=== PATIENT | female | born 1940 | race Two or more races ===

== ENCOUNTER 2025-02-10 10:01 | Inpatient (IN) | payer OTHER ==
[~2025-02-10] VITALS: Ht 165.1 cm; Wt 63.6 kg
--- NOTE | 2025-02-10 10:25 | ED.PDOC ---
History of present illness HPI Comments 84-year-old female presents here from facility boarding facility. There was some concern that the hospice agency was audited and due to blood sugars was dropped. Family not at bedside to give exact information. EMS his family number. Patient reports bilateral hand pinching pain only. No other complaints . Blood sugar was found to be 439 and field by EMS. Vital signs stable by EMS. Patient is at her normal mental baseline which has been slowly declining Chief Complaint: Hyperglycemia Time Seen by MD: 10:08 Allergies: Coded Allergies: Penicillins (Verified Allergy, Unknown, 02/10/25) Home Meds Reported Medications Lisinopril (Lisinopril) 5 Mg Tab, 1 TAB PO DAILY 02/10/25 Levothyroxine Sodium (Levothyroxine Sodium) 50 Mcg Tab, 1 TAB PO DAILY 02/10/25 Mode of Arrival: EMS Past Medical History PAST MEDICAL HISTORY: Dementia Surgical History: Pt Confused CASEWORKER History: Pt Confused Family History Family History (Other): Unable to obtain Social History Smoker: Pt Confused Alcohol: Pt Confused Drugs: Pt Confused Unable to Obtain due to: Dementia Physical Exam General Appearance: No Apparent Distress, Normal, Thin, Other (Lying in gurney. Answers few questions softly only.) HEENT: Normal ENT Inspection, Pharynx Normal, TMs Normal Neck: Full Range of Motion, Non-Tender, Normal, Normal Inspection Respiratory: Chest Non-Tender, Lungs Clear, No Accessory Muscle Use, No Respiratory Distress, Normal Breath Sounds Cardiovascular: No Edema, No JVD, No Murmur, No Gallop, Normal Peripheral Pulses, Regular Rate/Rhythm Breast Exam: Deferred Gastrointestinal: No Organomegaly, Non Tender, No Pulsatile Mass, Normal Bowel Sounds, Soft Genitalia: Deferred Pelvic: Deferred Rectal: Deferred Extremities: No calf tenderness, Normal capillary refill, Normal inspection, Normal range of motion, Non-tender, No pedal edema Musculoskeletal : Apperance: Normal Neurologic: Alert, No Motor Deficits, Normal Affect, Normal Mood, No Sensory Deficits, Other (Patient oriented to person only. Believes we are in [place]. When asked about the month and year begins to speak about her ph ysician.) Cerebellar Function: Normal Reflexes: Normal Skin: Dry, Normal Color, Warm Lymphatic: No Adenopathy Was a procedure done? Was a procedure done?: No EKG EKG : Comments Normal sinus rhythm rate of [address] changes Differential Diagnosis (DM) Differential Diagnosis: Dehydration, DKA, Electrolyte Abnormality, Hyperglycemia, Hyperosmolar State, UTI X-Ray, Labs, Meds, VS Vital Signs Date Time Temp Pulse Resp B/P (MAP) Pulse Ox O2 Delivery O2 Flow Rate FiO2 02/10/25 14:48 92 Nasal Cannula* 3 32 02/10/25 14:33 75 16 93 Nasal Cannula* 3 32 02/10/25 14:00 60 16 117/46 (69) 94 02/10/25 12:00 77 16 136/53 (80) 94 02/10/25 11:00 98.2 69 16 128/46 (73) 94 98.2 02/10/25 10:16 98.4 70 12 154/52 (86) 97 98.4 02/10/25 10:13 63 Lab Test 02/10/25 11:35 02/10/25 11:00 02/10/25 10:26 Range/Units Troponin I High Sensitivity 4 6 </=34 ng/L POC Glucose 422 *H 70-106 mg/dl White Blood Count 6.6 4.4-10.8 10^3/uL Red Blood Count 4.23 4.0-5.20 10^6/uL Hemoglobin 13.2 12.2-16.2 g/dL Hematocrit 38.5 36.0-46.0 % Mean Corpuscular Volume 90.9 80.0-100.0 fL Mean Corpuscular Hemoglobin 31.2 28.0-32.0 pg Mean Corpuscular Hemoglobin Concent 34.3 32.0-36.0 g/dL Red Cell Distribution Width 14.2 11.8-14.3 % Platelet Count 255 140-450 10^3/uL Mean Platelet Volume 6.6 L 6.9-10.8 fL Neutrophils (%) (Auto) 66.3 37.0-80.0 % Lymphocytes (%) (Auto) 24.9 10.0-50.0 % Monocytes (%) (Auto) 5.9 0.0-12.0 % Eosinophils (%) (Auto) 2.3 0.0-7.0 % Basophils (%) (Auto) 0.6 0.0-2.0 % Neutrophils # (Auto) 4.4 1.6-8.6 10 ^3/uL Lymphocytes # (Auto) 1.7 0.4-5.4 10 ^3/uL Monocytes # (Auto) 0.4 0-1.3 10 ^3/uL Eosinophils # (Auto) 0.2 0-0.8 10 ^3/uL Basophils # (Auto) 0 0-0.2 10 ^3/uL Nucleated Red Blood Cells 0.0 % Sodium Level 138 136-145 mmol/L Potassium Level 4.0 3.5-5.1 mmol/L Chloride Level 102 98-107 mmol/L Carbon Dioxide Level 28 20-31 mmol/L Anion Gap 8 5-15 Blood Urea Nitrogen 11 9-23 mg/dL Creatinine 0.60 0.550-1.02 mg/dL Glomerular Filtration Rate Calc 88 >90 mL/min BUN/Creatinine Ratio 18.3 10.0-20.0 Serum Glucose 402 *H 74-106 mg/dL Hemoglobin A1c 7.8 H <5.7 % A1C Calcium Level 8.8 8.7-10.4 mg/dL Magnesium Level 1.4 L 1.6-2.6 mg/dL Total Bilirubin 0.4 0.2-1.0 mg/dL Aspartate Amino Transferase (AST) 13 13-40 U/L Alanine Aminotransferase (ALT) 11 7-40 U/L Alkaline Phosphatase 77 46-116 U/L Total Protein 5.7 5.7-8.2 g/dL Albumin 3.6 3.2-4.8 g/dL Current Medications Medications (Trade) Dose Ordered Sig/Becky Route Start Time Stop Time Status Last Admin Diphenhydramine HCl (Benadryl Injection) 25 mg ONCE ONCE IV 02/10/25 11:15 02/10/25 11:16 DC 02/10/25 11:46 Diagnostic Test (Pha) (Accu-Chek Comfort Curve T) 1 strip NOW ONCE 02/10/25 12:15 02/10/25 12:16 DC 02/10/25 12:30 Insulin Human Regular (InsuLIN R) NOW ONCE SC 02/10/25 12:15 02/10/25 12:16 DC 02/10/25 12:27 84-year-old female presents here from [facility]. [facility] was on it today and did not pass out it and therefore the patient has all had to be transferred out. At that time EMS found her to be hyperglycemic. In the 400s. At this time blood work has been done which is largely unremarkable except for blood glucose of 402. She does not appear to be in DKA. Does have mildly low magnesium at 1.4. At this time patient will require clinical social work therapist consult and placement to another facility. Patient was on hospice and will need hospitalist re-evaluate. Patient has been started on sliding scale in the ER. And has been given IV fluids. Hospitalist team contacted for admission. Time of 1ST Reevaluation: 12:50 Reevaluation 1ST: Unchanged Patient Education/Counseling: Diagnosis, Treatment Family Education/Counseling: Diagnosis, Treatment SEPSIS Sepsis Screen Physician Orders Urinalysis (02/10/25 10:17) Electrocardigram (02/10/25 10:17) Electrocardigram (02/10/25 11:17) * Protocol Manager Consult (02/10/25 ) * Wound Consult (02/10/25 ) Speech Evaluation (02/10/25 14:41) Vital Signs Date Time Temp Pulse Resp B/P (MAP) Pulse Ox O2 Delivery O2 Flow Rate FiO2 02/10/25 14:48 92 Nasal Cannula* 3 32 02/10/25 14:33 75 16 93 Nasal Cannula* 3 32 02/10/25 14:00 60 16 117/46 (69) 94 02/10/25 12:00 77 16 136/53 (80) 94 02/10/25 11:00 98.2 69 16 128/46 (73) 94 98.2 02/10/25 10:16 98.4 70 12 154/52 (86) 97 98.4 02/10/25 10:13 63 Laboratory Tests Test 02/10/25 10:26 White Blood Count 6.6 10^3/uL (4.4-10.8) Medications Medications Dose Ordered Sig/Becky Route Start Time Stop Time Status Last Admin Dose Admin Diagnostic Test (Pha) 1 strip NOW ONCE 02/10/25 12:15 02/10/25 12:16 DC 02/10/25 12:30 Diphenhydramine HCl 25 mg ONCE ONCE IV 02/10/25 11:15 02/10/25 11:16 DC 02/10/25 11:46 Insulin Human Regular NOW ONCE SC 02/10/25 12:15 02/10/25 12:16 DC 7/12/25 12:27 Departure 1 Departure Time of Disposition: 12:50 Impression: Primary Impression: Hyperglycemia Disposition: 09 ADMITTED INPATIENT Condition: Fair Critical Care Note Critical Care Time?: No Stability Stability form required: No Heart Score Heart Score: Heart Score Response (Comments) Value History N/A 0 EKG N/A 0 Age N/A 0 Risk Factors N/A 0 Troponin N/A 0 Total 0 SHERON AYALA MD Feb 10, 2025 10:25
[2025-02-10 10:37] LABS: Hematocrit 38.5 % (36.0-46.0); Hemoglobin 13.2 g/dL (12.2-16.2); Mean Corpuscular Hemoglobin 31.2 pg (28.0-32.0); Mean Corpuscular Volume 90.9 fL (80.0-100.0); Nucleated Red Blood Cells % 0.0 %
[2025-02-10 10:53] LABS: Alanine Aminotransferase 11 U/L (7-40); Albumin 3.6 g/dL (3.2-4.8); Alkaline Phosphatase 77 U/L (46-116); Anion Gap 8 (5-15); BUN/Creatinine Ratio 18.3 (10.0-20.0); Blood Urea Nitrogen 11 mg/dL (9-23); Calcium 8.8 mg/dL (8.7-10.4); Carbon Dioxide 28 mmol/L (20-31); Chloride 102 mmol/L (98-107); Potassium 4.0 mmol/L (3.5-5.1); Sodium 138 mmol/L (136-145)
[2025-02-10 10:54] LABS: Bilirubin, Total 0.4 mg/dL (0.2-1.0)
[2025-02-10 10:57] LABS: Glucose 402 mg/dL (74-106); Magnesium 1.4 mg/dL (1.6-2.6); Total Protein 5.7 g/dL (5.7-8.2)
[2025-02-10] MEDS: diphenhdrAMINE HCL 50 MG/1 ML VL IV ONE (11:46)
[2025-02-10] MEDS ORDERED: DEXTROSE (50%) 50ML SYRG IV PRN ×2 (12:15→15:45)
[2025-02-10] MEDS: InsuLIN REG 1unit/0.01ml Soln (100units/ml) SC ONE (12:27)
[2025-02-10] MEDS: ACCU-CHEK COMFORT CURVE STRIP VI ONE (12:30)
[2025-02-10 14:33] VITALS: PULSE 75; RESP 16; O2SAT 93
[2025-02-10] MEDS ORDERED: LEVO50TA7 PO (15:38)
[2025-02-10] MEDS ORDERED: LISI-275 PO (15:38)
[2025-02-10] MEDS ORDERED: diphenhdrAMINE-ZINC ACETATE 1 APPLIC APPL TOP PRN (15:45)
[2025-02-10] MEDS ORDERED: ONDANSETRON HCL 4 MG/2 ML VIAL IV PRN (15:45)
--- NOTE | 2025-02-10 15:56 | DVHHP2 ---
History of Present Illness Reason for Visit: Hyperglycemia History of Present Illness Darshana Cano is an 84-year-old female with past medical history of hypothyroidism, hypertension, diabetes, dementia, and right hip fracture with a screw placed at [facility] who presents to the ED with elevated blood sugar from a board and care called [facility]. Per patient's son Cory and [id number]-[id number] Trixie at the bedside they report that the current hospice that she was at was audited and they were forced to take the patient out by 2 days from the facility. They stated that she has been in the board and care since November of 2023. Patient's son Cory reports that in August of this year while he was taking his mother to the neurology office on August 21, 2024 he had to lift her up and hold her up from the wheelchair and the patient developed rib fractures from him lifting her up. He reports that he called EMS for help. Patient's son reports that she is bed-bound. He also reports that she does eat with someone to feed her and the [id number] states that she drinks ensures with a decrease in her appetite in the last several days. Patient's family also states that she does not use oxygen at the facility. Family at bedside also states that while she was there at the board and care they kept the facility cold and blankets on the patient. They stated that they noted skin chafing/peeling along with itchiness. RN at the bedside also stated the she has a wound on her sacrum that was present on arrival. Patient displays no complaints of chest pain. 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 Dad with diabetes and CHF.) Smoke: No ALCOHOL: none Drugs: None Lives: Other Domestic Violence: Neg Review of Systems Other Elevated blood sugar Allergies: Coded Allergies: Penicillins (Verified Allergy, Unknown, 02/10/25) Medications Current Medications Medications Dose Ordered Sig/Becky Route Start Time Stop Time Status Last Admin Dose Admin Diagnostic Test (Pha) 1 strip IQ4HR 02/10/25 16:00 Insulin Human Regular IQ4HR SC 02/10/25 16:00 Dextrose 50 ml UD PRN IV 02/10/25 12:15 Ondansetron HCl 4 mg Q4HP PRN IV 02/10/25 15:45 UNV Enoxaparin Sodium 40 mg DAILY SC 02/11/25 10:00 UNV Acetaminophen 650 mg Q6HP PRN PO 02/10/25 15:45 UNV Diagnostic Test (Pha) 1 strip ACHS 02/10/25 17:00 UNV Insulin Human Regular ACHS SC 02/10/25 17:00 UNV Dextrose 50 ml UD PRN IV 02/10/25 15:45 UNV Zinc Acetate/ Diphenhydramine 1 applic Q6HP PRN TOP 02/10/25 15:45 UNV Exam Vital Signs Vital Signs Date Time Temp Pulse Resp B/P (MAP) Pulse Ox O2 Delivery O2 Flow Rate FiO2 02/10/25 14:48 92 Nasal Cannula* 3 32 02/10/25 14:33 75 16 02/10/25 14:00 117/46 (69) 02/10/25 11:00 98.2 98.2 General Appearance: No acute distress HEENT: Atraumatic Respiratory: Clear to auscultation, Normal air movement Cardiovascular: Normal S1, Normal S2 Abdominal: Normal bowel sounds, Soft Extremities: Normal pulses Labs/Xrays Labs Test 02/10/25 11:35 02/10/25 11:00 02/10/25 10:26 Range/Units Troponin I High Sensitivity 4 </=34 ng/L POC Glucose 422 *H 70-106 mg/dl White Blood Count 6.6 4.4-10.8 10^3/uL Red Blood Count 4.23 4.0-5.20 10^6/uL Hemoglobin 13.2 12.2-16.2 g/dL Hematocrit 38.5 36.0-46.0 % Mean Corpuscular Volume 90.9 80.0-100.0 fL Mean Corpuscular Hemoglobin 31.2 28.0-32.0 pg Mean Corpuscular Hemoglobin Concent 34.3 32.0-36.0 g/dL Red Cell Distribution Width 14.2 11.8-14.3 % Platelet Count 255 140-450 10^3/uL Mean Platelet Volume 6.6 L 6.9-10.8 fL Neutrophils (%) (Auto) 66.3 37.0-80.0 % Lymphocytes (%) (Auto) 24.9 10.0-50.0 % Monocytes (%) (Auto) 5.9 0.0-12.0 % Eosinophils (%) (Auto) 2.3 0.0-7.0 % Basophils (%) (Auto) 0.6 0.0-2.0 % Neutrophils # (Auto) 4.4 1.6-8.6 10 ^3/uL Lymphocytes # (Auto) 1.7 0.4-5.4 10 ^3/uL Monocytes # (Auto) 0.4 0-1.3 10 ^3/uL Eosinophils # (Auto) 0.2 0-0.8 10 ^3/uL Basophils # (Auto) 0 0-0.2 10 ^3/uL Nucleated Red Blood Cells 0.0 % Sodium Level 138 136-145 mmol/L Potassium Level 4.0 3.5-5.1 mmol/L Chloride Level 102 98-107 mmol/L Carbon Dioxide Level 28 20-31 mmol/L Anion Gap 8 5-15 Blood Urea Nitrogen 11 9-23 mg/dL Creatinine 0.60 0.550-1.02 mg/dL Glomerular Filtration Rate Calc 88 >90 mL/min BUN/Creatinine Ratio 18.3 10.0-20.0 Serum Glucose 402 *H 74-106 mg/dL Calcium Level 8.8 8.7-10.4 mg/dL Magnesium Level 1.4 L 1.6-2.6 mg/dL Total Bilirubin 0.4 0.2-1.0 mg/dL Aspartate Amino Transferase (AST) 13 13-40 U/L Alanine Aminotransferase (ALT) 11 7-40 U/L Alkaline Phosphatase 77 46-116 U/L Total Protein 5.7 5.7-8.2 g/dL Albumin 3.6 3.2-4.8 g/dL SEPSIS Sepsis Screen Date sepsis recognized/suspect: Feb 10, 2025 Time Sepsis recognized/suspect: 1441 Recent Procedure: No On Antibiotic Therapy: No Respiratory Rate >20: No Heart Rate >90: No Temp<36 C (96.8 F) or >38.3 C: No SBP <90 or MAP <65 mmHG: No New Acute Mental Status Change: No Is the patient on CPAP, BIPAP,: No Physician Orders Urinalysis (02/10/25 10:17) Electrocardigram (02/10/25 10:17) Electrocardigram (02/10/25 11:17) Glucose Blood (Accu-Chek Comfort Curve T (02/10/25 16:00) Insulin R (Human) (Insulin R) (02/10/25 16:00) Dextrose 50% Syringe (02/10/25 12:15) * Civil Litigation Attorney Consult (02/10/25 ) * Wound Consult (02/10/25 ) Speech Evaluation (02/10/25 14:41) Admit (02/10/25 15:34) Allergies (02/10/25 15:34) Code Status (02/10/25 15:34) Oxygen Per Hour (02/10/25 15:34) Ondansetron Hcl (Zofran) (02/10/25 15:45) Enoxaparin Sodium (Lovenox) (02/11/25 10:00) Complete Blood Count (02/11/25 04:00) Comprehensive Metabolic Panel (02/11/25 04:00) Cardiac Diet-2gna,Lofat,Lochol (02/10/25 Dinner) * Swallow Request (02/10/25 15:34) Acetaminophen Tablet (Tylenol Tablet) (02/10/25 15:45) Hemoglobin A1c (02/10/25 15:34) Glucose Blood (Accu-Chek Comfort Curve T (02/10/25 17:00) Insulin R (Human) (Insulin R) (02/10/25 17:00) Dextrose 50% Syringe (02/10/25 15:45) Diphenhdramine-Zinc Cream (Benadryl Crea (02/10/25 15:45) * Dietary Consult (02/10/25 15:38) Levothyroxine Tablet (Synthroid Tablet) (02/11/25 10:00) Lisinopril Tablet (Zestril Tablet) (02/11/25 10:00) Vital Signs Date Time Temp Pulse Resp B/P (MAP) Pulse Ox O2 Delivery O2 Flow Rate FiO2 02/10/25 14:48 92 Nasal Cannula* 3 32 02/10/25 14:33 75 16 93 Nasal Cannula* 3 32 02/10/25 14:00 60 16 117/46 (69) 94 02/10/25 12:00 77 16 136/53 (80) 94 02/10/25 11:00 98.2 69 16 128/46 (73) 94 98.2 02/10/25 10:16 98.4 70 12 154/52 (86) 97 98.4 02/10/25 10:13 63 Laboratory Tests Test 02/10/25 10:26 White Blood Count 6.6 10^3/uL (4.4-10.8) Medications Medications Dose Ordered Sig/Becky Route Start Time Stop Time Status Last Admin Dose Admin Diagnostic Test (Pha) 1 strip NOW ONCE 02/10/25 12:15 02/10/25 12:16 DC 02/10/25 12:30 1 STRIP Diphenhydramine HCl 25 mg ONCE ONCE IV 02/10/25 11:15 02/10/25 11:16 DC 02/10/25 11:46 25 MG Insulin Human Regular NOW ONCE SC 02/10/25 12:15 02/10/25 12:16 DC 02/10/25 12:27 15 UNITS Assessment/Plan Assessment/Plan Assessment Acute hypoxic respiratory failure Hyperglycemia History of dementia History of hypothyroidism History of hypertension History of diabetes History of right hip fracture with screw in [facility] at [facility] Bed-bound Resident of [facility] and 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 Dietary consult UA Urine culture Benadryl cream Wound consult Wound culture with Gram stain Diet Home medications reconciled DVT prophylaxis-Lovenox PUD prophylaxis-not indicated no history of GERD or GI bleed Discussed plan of care with patient's son, [id number], and nurse Social work-hospice resumption [id number] Preventive counseling healthy eating habits, physical activity, and regular checkups Plan discussed with: Son, Other ([id number]) My Orders Orders - MARGE CONTE STATISTICAL TECHNICIAN Procedure Category Date Status Time Admit ADMIT 02/10/25 Transmitted 15:34 Allergies NATA 02/10/25 In Process 15:34 Code Status CODE 02/10/25 Transmitted 15:34 Oxygen Per Hour RT 02/10/25 Transmitted 15:34 Ondansetron Hcl PHA 02/10/25 Logged (Zofran) 15:45 Enoxaparin Sodium PHA 02/11/25 Logged (Lovenox) 10:00 Complete Blood Count LAB 02/11/25 Verified 04:00 Comprehensive LAB 02/11/25 Verified Metabolic Panel 04:00 Cardiac DIET 02/10/25 Transmitted Diet-2gna,Lofat,Lochol Dinner * Swallow Request ST 02/10/25 Transmitted 15:34 Acetaminophen Tablet PHA 02/10/25 Logged (Tylenol Tablet) 15:45 Hemoglobin A1c LAB 02/10/25 Transmitted 15:34 Glucose Blood PHA 02/10/25 Logged (Accu-Chek Comfort 17:00 Insulin R (Human) PHA 02/10/25 Logged (Insulin R) 17:00 Dextrose 50% Syringe PHA 02/10/25 Logged 15:45 Diphenhdramine-Zinc PHA 02/10/25 Logged Cream (Benadryl Crea 15:45 * Dietary Consult CONS 02/10/25 Transmitted 15:38 Levothyroxine Tablet PHA 02/11/25 Verified (Synthroid Tablet) 10:00 Lisinopril Tablet PHA 02/11/25 Verified (Zestril Tablet) 10:00 Date of Service: Feb 10, 2025 Billing Provider: MARGE CONTE Common Visit Codes: [id number] INP/OBS CARE (HIGH) Secondary Visit Codes: [id number] COUNSELING IND MARGE CONTE Feb 10, 2025 15:56
[2025-02-10] MEDS: InsuLIN REG 1unit/0.01ml Soln (100units/ml) SC SCH ×2 (16:32→16:40)
[2025-02-10] MEDS: ACCU-CHEK COMFORT CURVE STRIP VI SCH ×2 (16:32→16:40)
[2025-02-10] MEDS: Ensure HIGH Protein Vanilla 8oz Bottle PO SCH (19:23)
[2025-02-10 19:30] VITALS: PULSE 70; RESP 14; O2SAT 94
[2025-02-10 21:17] LABS: Urine Protein, UAD 1+ (Negative)
[2025-02-11 04:16] LABS: Hematocrit 38.1 % (36.0-46.0); Hemoglobin 13.2 g/dL (12.2-16.2); Mean Corpuscular Hemoglobin 31.9 pg (28.0-32.0); Mean Corpuscular Volume 92.1 fL (80.0-100.0); Nucleated Red Blood Cells % 0.1 %
[2025-02-11 04:48] LABS: Alanine Aminotransferase 11 U/L (7-40); Albumin 3.6 g/dL (3.2-4.8); Alkaline Phosphatase 71 U/L (46-116); Anion Gap 8 (5-15); BUN/Creatinine Ratio 23.2 (10.0-20.0); Blood Urea Nitrogen 13 mg/dL (9-23); Calcium 10.0 mg/dL (8.7-10.4); Carbon Dioxide 29 mmol/L (20-31); Chloride 103 mmol/L (98-107); Potassium 4.1 mmol/L (3.5-5.1); Sodium 140 mmol/L (136-145)
[2025-02-11 04:49] LABS: Bilirubin, Total 0.6 mg/dL (0.2-1.0); Glucose 262 mg/dL (74-106); Total Protein 5.6 g/dL (5.7-8.2)
[2025-02-11] MEDS: LEVOTHYROXINE SODIUM 50 MCG TAB PO SCH (07:04)
[2025-02-11] MEDS: ENOXAPARIN SOD 40 MG/0.4 ML SYRINGE SC SCH (07:57)
[2025-02-11] MEDS: LISINOPRIL 5 MG TAB PO SCH (07:58)
[2025-02-11] MEDS: SODIUM CHLORIDE 0.9% 1,000 ML IV SCH (08:31)
[2025-02-11 10:42] VITALS: PULSE 70; RESP 19; O2SAT 94
[2025-02-11] MEDS: SILVER SULFADIAZINE 1 % TOPICAL CREAM 50GM TOP ONE (10:56)
[2025-02-11] MEDS: ACETAMINOPHEN 325 MG TAB PO PRN (13:41)
[2025-02-11 17:38] VITALS: BP 135/57; PULSE 60; RESP 12; TEMP 98.6; O2SAT 94
[2025-02-11 18:20] VITALS: BP 171/67; PULSE 68; RESP 16; TEMP 97.5; O2SAT 97
[2025-02-11 18:37] VITALS: O2SAT 96
[2025-02-11 21:00] VITALS: BP 157/50; PULSE 65; RESP 16; TEMP 98.2; O2SAT 95
[2025-02-12 01:00] VITALS: BP 154/50; PULSE 60; RESP 16; TEMP 97.5; O2SAT 98
[2025-02-12 08:45] VITALS: BP 137/71; PULSE 62; RESP 17; TEMP 97.8; O2SAT 98
[2025-02-12] MEDS ORDERED: METF-370 PO (09:37)
[2025-02-12] MEDS ORDERED: PRAM0.752 PO (09:37)
[2025-02-12] MEDS ORDERED: MEMA1TAB5 PO (09:37)
--- NOTE | 2025-02-12 12:37 | DVH ---
AP portable chest CLINICAL INDICATION: REsp failure FINDINGS: Poor inspiratory effort. Atelectasis in the lung bases. Heart size is borderline in the a terry is tortuous. IMPRESSION: 1. Normal expiratory chest exam
--- NOTE | 2025-02-12 12:53 | ECG ---
[facility] Test Date: 2025-02-10 Test Time: 10:13:59 Pat Name: RADHA MEJIA Department: ED Room: 0250 B Gender: F Mammography Tech: daryl : 1940 Requested By: SHERON AYALA Order Number: [id number] Reading MD: Paulie Perez Measurements Intervals [place] Rate: 63 P: 49 [place]: 121 QRS: -10 QRSD: 83 T: 33 QT: 405 QTc: 415 Interpretive Statements Sinus rhythm Atrial premature complex Low voltage, precordial leads Electronically Signed On 02-12-2025 19:26:00 PDT by Paulie Perez Please click the below link to view image of tracing.
[2025-02-12 13:00] VITALS: BP 128/57; PULSE 69; RESP 17; TEMP 98.8; O2SAT 96
[2025-02-12] MEDS ORDERED: METF-372 PO (14:05)
[2025-02-12] MEDS ORDERED: METH-1181 PO (14:06)
[2025-02-12] MEDS ORDERED: LEVO750T40 PO (14:08)
[2025-02-12] MEDS ORDERED: PIO30T PO (14:10)
--- NOTE | 2025-02-12 14:10 | DVHDS2 ---
Discharge Summary Date of Admission Feb 10, 2025 at 15:34 Date of Discharge: Feb 12, 2025 Labs/Diagnostic Data: Laboratory Results Test 02/12/25 11:21 02/11/25 03:52 02/10/25 20:58 02/10/25 11:35 POC Glucose 292 mg/dl (70-106) White Blood Count 6.9 10^3/uL (4.4-10.8) Red Blood Count 4.14 10^6/uL (4.0-5.20) Hemoglobin 13.2 g/dL (12.2-16.2) Hematocrit 38.1 % (36.0-46.0) Mean Corpuscular Volume 92.1 fL (80.0-100.0) Mean Corpuscular Hemoglobin 31.9 pg (28.0-32.0) Mean Corpuscular Hemoglobin Concent 34.7 g/dL (32.0-36.0) Red Cell Distribution Width 14.8 % (11.8-14.3) Platelet Count 237 10^3/uL (140-450) Mean Platelet Volume 6.9 fL (6.9-10.8) Neutrophils (%) (Auto) 50.9 % (37.0-80.0) Lymphocytes (%) (Auto) 37.3 % (10.0-50.0) Monocytes (%) (Auto) 7.7 % (0.0-12.0) Eosinophils (%) (Auto) 3.0 % (0.0-7.0) Basophils (%) (Auto) 1.1 % (0.0-2.0) Neutrophils # (Auto) 3.5 10 ^3/uL (1.6-8.6) Lymphocytes # (Auto) 2.6 10 ^3/uL (0.4-5.4) Monocytes # (Auto) 0.5 10 ^3/uL (0-1.3) Eosinophils # (Auto) 0.2 10 ^3/uL (0-0.8) Basophils # (Auto) 0.1 10 ^3/uL (0-0.2) Nucleated Red Blood Cells 0.1 % Sodium Level 140 mmol/L (136-145) Potassium Level 4.1 mmol/L (3.5-5.1) Chloride Level 103 mmol/L (98-107) Carbon Dioxide Level 29 mmol/L (20-31) Anion Gap 8 (5-15) Blood Urea Nitrogen 13 mg/dL (9-23) Creatinine 0.56 mg/dL (0.550-1.02) Glomerular Filtration Rate Calc 90 mL/min (>90) BUN/Creatinine Ratio 23.2 (10.0-20.0) Serum Glucose 262 mg/dL (74-106) Calcium Level 10.0 mg/dL (8.7-10.4) Total Bilirubin 0.6 mg/dL (0.2-1.0) Aspartate Amino Transferase (AST) 15 U/L (13-40) Alanine Aminotransferase (ALT) 11 U/L (7-40) Alkaline Phosphatase 71 U/L (46-116) Total Protein 5.6 g/dL (5.7-8.2) Albumin 3.6 g/dL (3.2-4.8) Urine Color Yellow (Yellow) Urine Clarity Turbid (Clear) Urine pH 5.5 (5.0-9.0) Urine Specific [place] 1.028 (1.001-1.035) Urine Protein 1+ (Negative) Urine Ketones Trace (Negative) Urine Blood Negative /uL (Negative) Urine Nitrite 2+ (Negative) Urine Bilirubin Negative (Negative) Urine Urobilinogen Normal mg/dL (Negative) Urine Leukocyte Esterase 2+ /uL (Negative) Urine RBC 6 /hpf (0 - 4) Urine Microscopic WBC 33 /HPF (0-5) Urine Squamous Epithelial Cells Few /hpf (<5) Urine Bacteria Many /hpf (None Seen) Urine Mucus Few (None Seen) Urine Glucose Trace mg/dL (Normal) Troponin I High Sensitivity 4 ng/L (</=34) Test 02/10/25 10:26 Hemoglobin A1c 7.8 % A1C (<5.7) Magnesium Level 1.4 mg/dL (1.6-2.6) Other Laboratory Tests 02/11/25 03:52 Brief Hx & Hospital Course: Patient is an 84-year-old female with past medical history of chronic resp failure on supplemental oxygen, hypothyroidism, hypertension, type 2 diabetes, Parkinson's who presented to the ER due to hypoglycemia. Patient was reportedly on hospice at hospice facility but per family was discharged from hospice company due to reported internal review per the company. Patient then was without hospice for 30 days. Since then she has been at the [facility] but has continued to decompensate. Patient arrived to the hospital with vitals notable for hypertension. No fever was noted. CBC did not reveal any leukocytosis. BMP was done which was notable for serum glucose of 402. Patient was started on insulin sliding scale. Glucose level remained in the 200s. Home medications were reviewed. Her metformin was increased to 1000 mg twice daily and pioglitazone 30 mg was restarted on discharge. Chest x-ray was done which did not reveal any pneumonia or acute on chronic respiratory failure. UA was notable for UTI. Patient has a chronic Borrero which was exchanged. She was discharged on levofloxacin 750 mg daily for 5 days. Patient was also discharged on methocarbamol for muscle spasms. Patient was discharged to [facility] hospice which the family requested. Condition at Discharge: Poor Final Diagnosis/Problems List Failure to Thrive Secondary Diagnosis: Decubitus Skin Breakdown No Sepsis Chronic Respiratory Failure Type 2 Diabetes with Hypertension Parkison's Disease Discharge Disposition: Hospice - Home Discharge Instruct/Medications Diet: See Comment Diet comment: As tolerated Activity: Bed rest Follow Up/Referral: DC to Hospice Scheduled Levofloxacin Hemihydrate (Levofloxacin), 1 TAB PO DAILY Levothyroxine Sodium (Levothyroxine Sodium), 1 TAB PO DAILY, (Reported) Lisinopril (Lisinopril), 1 TAB PO DAILY, (Reported) Metformin Hydrochloride (Metformin Hcl), 1 TAB PO BID Methocarbamol (Methocarbamol), 500 MG PO TID Pioglitazone Hydrochloride (Actos Tablet), 1 TAB PO DAILY Miscellaneous Medications Memantine Hydrochloride (Memantine HCl), 10 MG PO, (Reported) Pramipexole Dihydrochloride (Mirapex Er), 0.5 MG PO, (Reported) Discontinued Medications Metformin Hydrochloride (Metformin Hcl), 1 TAB PO BID, (Reported) Discharge Statement: "Patient was advised to return to the ER or call 911 if any headaches, dizziness, shortness of breath, chest pain, abdominal pain, bleeding, fevers, or worsening of medical condition. Patient was counseled about treatment plan, medications, possible side effects, patientverbalized understanding. All questions were answered to the best of my ability. This discharge took greater then 30 minutes in planning, reviewing documentation, counseling the patient, and discussing with other team members." ASSESSMENT ASSESSMENT Assessment Failure to Thrive LOS HERBERT DO Feb 12, 2025 14:10
[2025-02-12 15:01] VITALS: BP 137/71; PULSE 62; RESP 17; TEMP 97.8; O2SAT 98
[2025-02-12 17:00] VITALS: BP 153/52; PULSE 61; RESP 17; TEMP 98; O2SAT 98
[2025-02-12] MEDS: MAGNESIUM OXIDE 400 MG TAB PO ONE (17:49)
== END 2025-02-12 18:15 | disposition hospice, home (50) | DRG 637 ==
LOC: ER 10:01 → EDBD 10:01 → OVERFLOW 15:34 → EAST 02-11 18:20
PROVIDERS: ADMIT Student in an Organized Health Care Education/Training Program; ATTEND Student in an Organized Health Care Education/Training Program
DX: E11.65 Type 2 diabetes mellitus with hyperglycemia (principal); J96.21 Acute and chronic respiratory failure with hypoxia; N39.0 Urinary tract infection, site not specified; G20.A1 Parkinson's disease without dyskinesia, without mention of fluctuations; E03.9 Hypothyroidism, unspecified; Z51.5 Encounter for palliative care; R62.7 Adult failure to thrive; I10 Essential (primary) hypertension; L30.4 Erythema intertrigo; F02.80 Dementia in other diseases classified elsewhere, unspecified severity, without behavioral disturbance, psychotic disturbance, mood disturbance, and anxiety; Z74.01 Bed confinement status; Z88.0 Allergy status to penicillin; Z88.8 Allergy status to other drugs, medicaments and biological substances; Z83.3 Family history of diabetes mellitus; Z82.49 Family history of ischemic heart disease and other diseases of the circulatory system; Z79.84 Long term (current) use of oral hypoglycemic drugs; Z68.25 Body mass index [BMI] 25.0-25.9, adult
CPT/HCPCS: 36415; 71045; 80053; 81001; 82962; 83036; 83735; 84484; 85025; 87077; 87086; 87186; 87205; 93005; 96372; 96374; G0378; J1815